=== PATIENT | male | born 1985 | race Caucasian/White ===

== ENCOUNTER 2018-02-23 14:08 | Emergency (ER) | payer OTHER, MEDICAID ==
[~2018-02-23] VITALS: Ht 188 cm; Wt 86.0 kg
[~2018-02-23 14:08] MED LIST: IBUP-1985 PO; RANI150T44 PO
[2018-02-23 17:06] VITALS: BP 143/95
== END 2018-02-23 17:08 | disposition home or self-care (01) ==
LOC: ER 14:08
DX: M25.571 Pain in right ankle and joints of right foot (principal); J45.909 Unspecified asthma, uncomplicated; Z98.890 Other specified postprocedural states; Z79.899 Other long term (current) drug therapy
CPT/HCPCS: 73590; 73610; 99284

== ENCOUNTER 2018-12-28 13:33 | Emergency (ER) | payer MEDICAID, OTHER ==
[~2018-12-28] VITALS: Ht 188 cm; Wt 95.8 kg
--- NOTE | 2018-12-28 14:10 | NUR ---
patient fell off single story roof 08/10/17. Right TIB/fib 08/10/17 dr vargas been on crutches since 2017 [place] recently suppose to be 25% weight bearing, wering boot to right leg on gabapentin 800 mg qid last took tylenol 500 mg po at 1000 today last night iced and used icey hot cream
[2018-12-28] MEDS ORDERED: HYDROcodone/acetaminophen 5mg/325mg tablet PO ONE (14:15)
[2018-12-28] MEDS ORDERED: ketorolac trometh inj. 60 MG/2 ML VIAL IM ONE (14:15)
[2018-12-28] MEDS ORDERED: CYCL-1 PO (14:17)
[2018-12-28] MEDS ORDERED: HYDR-4383 PO (14:17)
[2018-12-28 14:41] VITALS: BP 125/80
== END 2018-12-28 14:53 | disposition home or self-care (01) ==
LOC: ER 13:34
DX: M54.5 Low back pain (principal); M62.830 Muscle spasm of back; J45.909 Unspecified asthma, uncomplicated; K21.9 Gastro-esophageal reflux disease without esophagitis; F17.200 Nicotine dependence, unspecified, uncomplicated; Z98.890 Other specified postprocedural states
CPT/HCPCS: 96372; 99283; J1885

== ENCOUNTER 2020-10-15 16:57 | Emergency (ER) | payer OTHER ==
[~2020-10-15] VITALS: Ht 188 cm; Wt 95.5 kg
[~2020-10-15 16:57] MED LIST changes: +CYCL-1 PO; +HYDR-4383 PO; +RANI-648 PO; -RANI150T44 PO
[2020-10-15 17:32] VITALS: BP 118/77
[2020-10-15] MEDS ORDERED: DOXYCYCLINE 100MG CAPSULE PO STA (20:14)
[2020-10-15] MEDS ORDERED: DOXY100C43 PO (20:18)
[2020-10-28] MEDS ORDERED: CEPH-585 PO (15:51)
== END 2020-10-15 20:32 | disposition home or self-care (01) ==
LOC: ER 16:58
DX: L03.115 Cellulitis of right lower limb (principal); J45.909 Unspecified asthma, uncomplicated; K21.9 Gastro-esophageal reflux disease without esophagitis; Z79.899 Other long term (current) drug therapy; Z48.00 Encounter for change or removal of nonsurgical wound dressing
CPT/HCPCS: 99283

== ENCOUNTER 2020-10-28 13:53 | Emergency (ER) | payer OTHER, MEDICAID ==
[~2020-10-28] VITALS: Ht 188 cm; Wt 95.5 kg
[~2020-10-28 13:53] MED LIST changes: +DOXY100C43 PO
--- NOTE | 2020-10-28 14:51 | NUR ---
patient in gown wound to right lower leg present since august 10, 2017
[2020-10-28 14:57] LABS: BASOPHILS # (AUTO) 0.1 X10'3 (0-0.2); BASOPHILS % (AUTO) 0.8 % (0-1); EOSINOPHILS # (AUTO) 0.2 X10'3 (0-0.9); EOSINOPHILS % (AUTO) 2.6 % (0-6); HEMATOCRIT 44.8 % (42.0-52.0); HEMOGLOBIN 15.3 g/dl (14.0-17.9); LYMPHOCYTES # (AUTO) 2.2 X10'3 (1.1-4.8); LYMPHOCYTES % (AUTO) 23.3 % (21-51); MEAN CORPUSCULAR HEMOGLOBIN 33.8 PG (27.0-31.0); MEAN CORPUSCULAR HGB CONC 34.3 g/dL (33.0-36.5); MEAN CORPUSCULAR VOLUME 98.6 FL (78-98); MEAN PLATELET VOLUME 7.3 FL (7.4-10.4); MONOCYTES # (AUTO) 0.7 X10'3 (0-0.9); MONOCYTES % (AUTO) 7.5 % (2-12); NEUTROPHILS # (AUTO) 6.3 X10'3 (1.8-7.7); NEUTROPHILS % (AUTO) 65.8 % (42-75); PLATELET COUNT 262 X10'3 (140-440); RED BLOOD COUNT 4.54 X10'6 (4.70-6.10); RED CELL DISTRIBUTION WIDTH 12.9 % (11.5-14.5); WHITE BLOOD COUNT 9.6 X10'3 (4.5-11.0)
[2020-10-28 15:21] LABS: ALANINE AMINOTRANSFERASE 27 U/L (12-78); ALBUMIN 4.1 G/DL (3.4-5.0); ALBUMIN/GLOBULIN RATIO 1.2 (1.1-1.5); ALKALINE PHOSPHATASE 53 IU/L (46-116); ANION GAP 9 (8-16); ASPARTATE AMINO TRANSFERASE 23 U/L (10-37); BILIRUBIN,TOTAL 0.4 MG/DL (0.1-1.0); BLOOD UREA NITROGEN 9 MG/DL (7-18); BUN/CREATININE RATIO 7.9 (5.4-32.0); CALCIUM 8.8 MG/DL (8.5-10.1); CHLORIDE 103 MMOL/L (99-107); CREATININE 1.14 MG/DL (0.60-1.10); GLUCOSE 93 MG/DL (70-104); POTASSIUM 3.8 MMOL/L (3.5-5.1); SODIUM 138 MMOL/L (135-145); TOTAL CARBON DIOXIDE 26.4 MMOL/L (24-32); TOTAL PROTEIN 7.4 G/DL (6.4-8.2); eGFR 73 ML/MIN
--- NOTE | 2020-10-28 15:34 | NUR ---
per dr josi mcdaniel is safe to discharge home on antibiotics jonas recently finished a course of doxy from his visit here on 10/15/20
--- NOTE | 2020-10-28 15:39 | NUR ---
jonas takes norco and gabapentin for crs related to his tib/fib fracture jonas has not been in wound care because workers comp denied it per patient
[2020-10-28] MEDS ORDERED: SULF1TAB49 PO (15:51)
[2020-10-28] MEDS ORDERED: CEPH500C5 PO (15:51)
[2020-10-28 16:05] VITALS: BP 126/84
== END 2020-10-28 16:02 | disposition home or self-care (01) ==
LOC: ER 13:53
DX: L03.115 Cellulitis of right lower limb (principal); J45.909 Unspecified asthma, uncomplicated; K21.9 Gastro-esophageal reflux disease without esophagitis; F17.200 Nicotine dependence, unspecified, uncomplicated; Z98.890 Other specified postprocedural states; Z87.820 Personal history of traumatic brain injury; Z72.89 Other problems related to lifestyle; Z79.2 Long term (current) use of antibiotics; Z79.899 Other long term (current) drug therapy
CPT/HCPCS: 36415; 73590; 80053; 83605; 85025; 86140; 99284

== ENCOUNTER 2020-11-22 14:24 | Inpatient (IN) | payer MEDICAID, OTHER ==
[~2020-11-22] VITALS: Ht 188 cm; Wt 105.5 kg
[~2020-11-22 14:24] MED LIST changes: +CEPH500C5 PO; -DOXY100C43 PO
[2020-11-22] MEDS ORDERED: LORazepam 2 mg/ml vial IV ONE (16:30)
[2020-11-22] MEDS ORDERED: magnesium 2GM in 50ml NS 50 ML IV ONE (16:30)
[2020-11-22] MEDS ORDERED: normal saline 1000ML IV soln IV ONE (16:30)
[2020-11-22 17:30] LABS: BASOPHILS # (AUTO) 0.1 X10'3 (0-0.2); BASOPHILS % (AUTO) 0.4 % (0-1); EOSINOPHILS % (AUTO) 0 % (0-6); HEMATOCRIT 43.8 % (42.0-52.0); HEMOGLOBIN 15.1 g/dl (14.0-17.9); LYMPHOCYTES # (AUTO) 1.8 X10'3 (1.1-4.8); LYMPHOCYTES % (AUTO) 11.8 % (21-51); MEAN CORPUSCULAR HEMOGLOBIN 33.4 PG (27.0-31.0); MEAN CORPUSCULAR HGB CONC 34.6 g/dL (33.0-36.5); MEAN CORPUSCULAR VOLUME 96.7 FL (78-98); MEAN PLATELET VOLUME 6.7 FL (7.4-10.4); MONOCYTES # (AUTO) 0.8 X10'3 (0-0.9); MONOCYTES % (AUTO) 5.5 % (2-12); NEUTROPHILS # (AUTO) 12.3 X10'3 (1.8-7.7); NEUTROPHILS % (AUTO) 82.3 % (42-75); PLATELET COUNT 300 X10'3 (140-440); RED BLOOD COUNT 4.53 X10'6 (4.70-6.10)
[2020-11-22 17:40] LABS: ALANINE AMINOTRANSFERASE 28 U/L (12-78); ALBUMIN 4.3 G/DL (3.4-5.0); ALBUMIN/GLOBULIN RATIO 1.3 (1.1-1.5); ALKALINE PHOSPHATASE 66 IU/L (46-116); ANION GAP 10 (8-16); ASPARTATE AMINO TRANSFERASE 40 U/L (10-37); BILIRUBIN,TOTAL 0.6 MG/DL (0.1-1.0); BLOOD UREA NITROGEN 11 MG/DL (7-18); BUN/CREATININE RATIO 10.8 (5.4-32.0); CALCIUM 9.2 MG/DL (8.5-10.1); CHLORIDE 105 MMOL/L (99-107); CREATINE KINASE 233 U/L (39-308); CREATININE 1.02 MG/DL (0.60-1.10); ETHANOL < 0.010 GM/DL (0.0-0.010); GLUCOSE 109 MG/DL (70-104); POTASSIUM 3.9 MMOL/L (3.5-5.1); SODIUM 140 MMOL/L (135-145); TOTAL CARBON DIOXIDE 24.6 MMOL/L (24-32); TOTAL PROTEIN 7.7 G/DL (6.4-8.2); eGFR 83 ML/MIN
[2020-11-22 19:33] LABS: URINE AMPHETAMINE SCREEN NEGATIVE (Neg); URINE BARBITUATE SCREEN NEGATIVE (Neg); URINE BENZODIAZEPINES SCREEN NEGATIVE (Neg); URINE CANNABINOID SCREEN POSITIVE (Neg); URINE COCAINE SCREEN NEGATIVE (Neg); URINE METHADONE SCREEN NEGATIVE (Neg); URINE OPIATE SCREEN NEGATIVE (Neg); URINE PHENCYCLIDINE SCREEN NEGATIVE (Neg)
[2020-11-22 19:35] LABS: CLARITY,URINE CLEAR (Clear); COLOR,URINE YELLOW (Yellow); GLUCOSE, URINE NEGATIVE (Neg); KETONES,URINE >=80 mg/dl (Neg); LEUKOCYTE ESTERASE ,URINE NEGATIVE (Neg); NITRITES, URINE NEGATIVE (Neg); OCCULT BLOOD,URINE NEGATIVE (Neg); PH,URINE 5.5 (4.8-8.0); PROTEIN,URINE NEGATIVE (Neg); UROBILINOGEN,URINE 0.2 E.U/dL (0.2-1.0)
[2020-11-22 19:38] LABS: UA COLLECTION TYPE URINAL
[2020-11-22] MEDS ORDERED: LORazepam 2 mg/ml vial IV PRN (20:00)
[2020-11-22] MEDS ORDERED: potassium Cl 40MEQ/1/2NS 520ml 520 ML IV PRN ×2 (20:00)
[2020-11-22] MEDS ORDERED: magnesium 4gm in 100ml NS 100 ML IV PRN (20:00)
[2020-11-22] MEDS ORDERED: morphine 2 MG/ML inj. syringe IV PRN (20:00)
[2020-11-22] MEDS ORDERED: magnesium 2GM in 50ml NS 50 ML IV PRN (20:00)
[2020-11-22] MEDS ORDERED: mag hydrox/Alum hydrox/simeth 30ml oral suspension PO PRN (20:00)
[2020-11-22] MEDS ORDERED: ondansetron/PF 4mg/2ml inj IV PRN (20:00)
[2020-11-22] MEDS: K and/or MAG REPLACEMENT MC SCH (20:00)
[2020-11-22] MEDS ORDERED: bisacodyl 10mg suppository rectal RC PRN (20:00)
[2020-11-22] MEDS ORDERED: metoclopramide 5 mg/ml inj IV PRN (20:00)
[2020-11-22] MEDS ORDERED: HYDROcodone/acetaminophen 5mg/325mg tablet PO PRN (20:00)
[2020-11-22] MEDS ORDERED: potassium Cl 20 mEq SR tablet PO PRN ×2 (20:00)
[2020-11-22] MEDS ORDERED: acetaminophen 325mg tablet PO PRN ×2 (20:00)
[2020-11-22] MEDS ORDERED: magnesium Cl slow-release 64mg tablet PO PRN (20:00)
[2020-11-22] MEDS ORDERED: magnesium hydroxide 30ml (MOM) UD suspension PO PRN (20:00)
[2020-11-22] MEDS ORDERED: HYDR-3973 PO (20:11)
[2020-11-22] MEDS ORDERED: LURA40TA3 PO (20:13)
[2020-11-22] MEDS ORDERED: GABA800T11 PO (20:14)
[2020-11-22] MEDS: normal saline 1000ml 1,000 ML IV SCH (20:19)
[2020-11-22] MEDS: morphine 2 MG/ML inj. syringe IV PRN (20:20)
[2020-11-22 20:33] LABS: PHOSPHORUS 3.2 MG/DL (2.3-4.5)
[2020-11-22] MEDS ORDERED: temazepam 15mg capsule PO PRN (21:00)
[2020-11-22] MEDS: HYDROcodone/acetaminophen 10/325mg tab PO PRN (21:18)
[2020-11-22] MEDS ORDERED: ibuprofen 200mg tablet PO PRN (22:05)
[2020-11-22] MEDS ORDERED: nicotine 14mg patch - 24hr TD ONE (22:05)
[2020-11-22] MEDS: gabapentin 400mg capsule PO SCH (22:15)
[2020-11-22] MEDS: lurasidone 20mg tablet PO SCH (22:16)
[2020-11-23 02:50] LABS: HEMATOCRIT 39.9 % (42.0-52.0); HEMOGLOBIN 13.6 g/dl (14.0-17.9); MEAN CORPUSCULAR HEMOGLOBIN 33.3 PG (27.0-31.0); MEAN CORPUSCULAR HGB CONC 34.1 g/dL (33.0-36.5); MEAN CORPUSCULAR VOLUME 97.7 FL (78-98); MEAN PLATELET VOLUME 6.8 FL (7.4-10.4); PLATELET COUNT 227 X10'3 (140-440); RED BLOOD COUNT 4.08 X10'6 (4.70-6.10); WHITE BLOOD COUNT 10.4 X10'3 (4.5-11.0)
[2020-11-23 03:07] LABS: ALBUMIN 3.3 G/DL (3.4-5.0); ANION GAP 11 (8-16); BLOOD UREA NITROGEN 8 MG/DL (7-18); BUN/CREATININE RATIO 9.2 (5.4-32.0); CALCIUM 7.5 MG/DL (8.5-10.1); CHLORIDE 106 MMOL/L (99-107); CREATININE 0.87 MG/DL (0.60-1.10); GLUCOSE 97 MG/DL (70-104); MAGNESIUM 2.2 MG/DL (1.5-2.4); POTASSIUM 3.5 MMOL/L (3.5-5.1); SODIUM 139 MMOL/L (135-145); TOTAL CARBON DIOXIDE 22.2 MMOL/L (24-32); eGFR > 90 ML/MIN
[2020-11-23] MEDS: normal saline 1000ml 1,000 ML IV SCH ×2 (03:29→16:01)
[2020-11-23] MEDS: HYDROcodone/acetaminophen 10/325mg tab PO PRN (03:29)
[2020-11-23] MEDS: K and/or MAG REPLACEMENT MC SCH ×2 (06:29→20:00)
[2020-11-23] MEDS: gabapentin 400mg capsule PO SCH ×2 (07:31→19:30)
[2020-11-23] MEDS: nicotine 14mg patch - 24hr TD SCH (07:32)
[2020-11-23] MEDS ORDERED: HYDROcodone/acetaminophen 10/325mg tab PO SCH (08:00)
--- NOTE | 2020-11-23 10:10 | NUR ---
patient on bed asleep.We will monitor.
[2020-11-23] MEDS ORDERED: GADOTERATE MEGLUMINE 7.5 MMOL/15 ML VIAL IV ONE (10:13)
--- NOTE | 2020-11-23 11:11 | NUR ---
placed on hospital bed
--- NOTE | 2020-11-23 14:02 | NUR ---
Patient resting quietly, no needs at this time.
--- NOTE | 2020-11-23 18:55 | NUR ---
report given to PCU on tele monitor for transport
[2020-11-23] MEDS: lurasidone 20mg tablet PO SCH (19:30)
[2020-11-23] MEDS: morphine 2 MG/ML inj. syringe IV PRN (19:30)
[2020-11-24 02:00] VITALS: BP 145/75
[2020-11-24] MEDS: normal saline 1000ml 1,000 ML IV SCH ×3 (02:00→21:28)
[2020-11-24 06:00] VITALS: BP 140/90
--- NOTE | 2020-11-24 06:44 | NUR ---
Patient in room PCU 3025. I have received report from Simon Goddard RN and had the opportunity to ask questions and assume patient care.
--- NOTE | 2020-11-24 06:52 | NUR ---
Paged EEG to make sure they are aware of EEG order from 11/22.
[2020-11-24 07:04] LABS: HEMATOCRIT 42.3 % (42.0-52.0); HEMOGLOBIN 14.4 g/dl (14.0-17.9); MEAN CORPUSCULAR HEMOGLOBIN 33.1 PG (27.0-31.0); MEAN CORPUSCULAR VOLUME 97.3 FL (78-98); MEAN PLATELET VOLUME 6.9 FL (7.4-10.4); PLATELET COUNT 236 X10'3 (140-440); RED BLOOD COUNT 4.35 X10'6 (4.70-6.10); RED CELL DISTRIBUTION WIDTH 13.4 % (11.5-14.5)
[2020-11-24 07:22] LABS: ALBUMIN 3.5 G/DL (3.4-5.0); ANION GAP 11 (8-16); BLOOD UREA NITROGEN 8 MG/DL (7-18); BUN/CREATININE RATIO 9.4 (5.4-32.0); CALCIUM 8.5 MG/DL (8.5-10.1); CHLORIDE 103 MMOL/L (99-107); CREATININE 0.85 MG/DL (0.60-1.10); GLUCOSE 96 MG/DL (70-104); MAGNESIUM 2.1 MG/DL (1.5-2.4); PHOSPHORUS 3.4 MG/DL (2.3-4.5); POTASSIUM 3.5 MMOL/L (3.5-5.1); SODIUM 139 MMOL/L (135-145); TOTAL CARBON DIOXIDE 24.8 MMOL/L (24-32); eGFR > 90 ML/MIN
[2020-11-24] MEDS: gabapentin 400mg capsule PO SCH ×2 (07:55→20:00)
[2020-11-24] MEDS: nicotine 14mg patch - 24hr TD SCH (07:56)
[2020-11-24] MEDS: K and/or MAG REPLACEMENT MC SCH ×2 (08:00→19:28)
[2020-11-24 11:00] VITALS: BP 140/89
[2020-11-24 15:00] VITALS: BP 127/88
--- NOTE | 2020-11-24 15:36 | NUR ---
Paged EEG regarding results of EEG from this morning.
--- NOTE | 2020-11-24 15:46 | NUR ---
Spoke with Dr Logan regarding patient' s EEG results. Received order to do a tele neuro consult regarding EEG results. Addendum: 11/24/20 at 1550 by Anna Best RN Success A new connect request was successfully created for: Jose Torres : 1985 ConnectID: [id number] REASON: Follow up Other ACUITY: Acuity Level 4 SUBMITTED: 11/24/2020 15:50 PST
[2020-11-24 18:00] VITALS: BP 141/89
--- NOTE | 2020-11-24 18:14 | NUR ---
Problems reprioritized. Patient report given, questions answered & plan of care reviewed with JACQUELINE TAYLOR.
[2020-11-24] MEDS: divalproex 250mg tablet, delayed-release PO SCH (20:00)
[2020-11-24] MEDS: lurasidone 20mg tablet PO SCH (21:28)
[2020-11-24 22:00] VITALS: BP 145/94
[2020-11-25 02:00] VITALS: BP 145/84
[2020-11-25 06:00] VITALS: BP 136/78
--- NOTE | 2020-11-25 06:15 | NUR ---
received report from viviana colon
[2020-11-25 06:21] LABS: HEMATOCRIT 42.4 % (42.0-52.0); HEMOGLOBIN 14.9 g/dl (14.0-17.9); MEAN CORPUSCULAR HEMOGLOBIN 33.7 PG (27.0-31.0); MEAN CORPUSCULAR HGB CONC 35.1 g/dL (33.0-36.5); MEAN CORPUSCULAR VOLUME 95.9 FL (78-98); MEAN PLATELET VOLUME 6.8 FL (7.4-10.4); PLATELET COUNT 244 X10'3 (140-440); RED BLOOD COUNT 4.42 X10'6 (4.70-6.10); WHITE BLOOD COUNT 8.9 X10'3 (4.5-11.0)
[2020-11-25 06:50] LABS: ALBUMIN 3.7 G/DL (3.4-5.0); ANION GAP 12 (8-16); BLOOD UREA NITROGEN 11 MG/DL (7-18); BUN/CREATININE RATIO 10.6 (5.4-32.0); CALCIUM 8.8 MG/DL (8.5-10.1); CHLORIDE 103 MMOL/L (99-107); CREATININE 1.04 MG/DL (0.60-1.10); GLUCOSE 96 MG/DL (70-104); MAGNESIUM 2.2 MG/DL (1.5-2.4); POTASSIUM 3.6 MMOL/L (3.5-5.1); SODIUM 143 MMOL/L (135-145); TOTAL CARBON DIOXIDE 28.5 MMOL/L (24-32); eGFR 81 ML/MIN
[2020-11-25] MEDS: nicotine 14mg patch - 24hr TD SCH (07:49)
[2020-11-25] MEDS: gabapentin 400mg capsule PO SCH (07:50)
[2020-11-25] MEDS: divalproex 250mg tablet, delayed-release PO SCH (07:50)
[2020-11-25] MEDS: K and/or MAG REPLACEMENT MC SCH (07:53)
[2020-11-25] MEDS: normal saline 1000ml 1,000 ML IV SCH (08:00)
[2020-11-25] MEDS ORDERED: DIVA250T4 PO (10:23)
--- NOTE | 2020-11-25 11:13 | NUR ---
pt d/c with instructions, understanding of instructions and w/all belongings walking private vehicle to go home and make own appointment w/pcp pt had a right lower extremity wound that [facility] outpt wound care manages and pt did not want to have a picture taken of his wound prior to d/c
== END 2020-11-25 11:15 | disposition home or self-care (01) | DRG 812 ==
LOC: ER 14:24 → ED HOLD 20:00 → PCU 3S 11-23 19:00
PROVIDERS: ADMIT Family Medicine; ATTEND Internal Medicine
PROC: 4A00X4Z Measurement of Central Nervous Electrical Activity, External Approach (ICD-10-PCS; principal; 2020-11-24)
DX: T40.7X1A Poisoning by cannabis (derivatives), accidental (unintentional), initial encounter (principal); G40.89 Other seizures; D72.829 Elevated white blood cell count, unspecified; F31.30 Bipolar disorder, current episode depressed, mild or moderate severity, unspecified; G89.4 Chronic pain syndrome; G93.41 Metabolic encephalopathy; J45.909 Unspecified asthma, uncomplicated; F17.210 Nicotine dependence, cigarettes, uncomplicated; K21.9 Gastro-esophageal reflux disease without esophagitis; Z87.828 Personal history of other (healed) physical injury and trauma; Z79.899 Other long term (current) drug therapy; Y92.89 Other specified places as the place of occurrence of the external cause
CPT/HCPCS: 36415; 70450; 70544; 70553; 71045; 80048; 80053; 80305; 80320; 81003; 82550; 83605; 83735; 84100; 84145; 84443; 85025; 85027; 87040; 87081; 93005; 95816; 99285; A9575; G0378; J2060; J2270; J3475; J7030

== ENCOUNTER 2022-03-26 16:11 | Emergency (ER) | payer BC, MEDICAID ==
[~2022-03-26] VITALS: Ht 188 cm; Wt 97.7 kg
[~2022-03-26 16:11] MED LIST changes: -CEPH500C5 PO; -CYCL-1 PO; +DIVA250T4 PO; +GABA800T11 PO; +HYDR-3973 PO; -HYDR-4383 PO; +LURA40TA2 PO; -RANI-648 PO
[2022-03-26 17:15] LABS: BASOPHILS % (AUTO) 0.3 % (0-1); EOSINOPHILS % (AUTO) 0.8 % (0-6); HEMATOCRIT 40.8 % (42.0-52.0); HEMOGLOBIN 14.1 g/dl (14.0-17.9); LYMPHOCYTES # (AUTO) 0.4 X10'3 (1.1-4.8); LYMPHOCYTES % (AUTO) 7.6 % (21-51); MEAN CORPUSCULAR HGB CONC 34.6 g/dL (33.0-36.5); MEAN CORPUSCULAR VOLUME 98.2 FL (78-98); MEAN PLATELET VOLUME 7.2 FL (7.4-10.4); MONOCYTES # (AUTO) 0.9 X10'3 (0-0.9); MONOCYTES % (AUTO) 19.3 % (2-12); NEUTROPHILS # (AUTO) 3.4 X10'3 (1.8-7.7); PLATELET COUNT 169 X10'3 (140-440); RED BLOOD COUNT 4.16 X10'6 (4.70-6.10); RED CELL DISTRIBUTION WIDTH 13.7 % (11.5-14.5); WHITE BLOOD COUNT 4.8 X10'3 (4.5-11.0)
[2022-03-26 17:33] LABS: ALANINE AMINOTRANSFERASE 30 U/L (12-78); ALBUMIN 4.2 G/DL (3.4-5.0); ALBUMIN/GLOBULIN RATIO 1.4 (1.1-1.5); ALKALINE PHOSPHATASE 50 IU/L (46-116); ANION GAP 9 (8-16); ASPARTATE AMINO TRANSFERASE 21 U/L (10-37); BILIRUBIN,TOTAL 0.4 MG/DL (0.1-1.0); BLOOD UREA NITROGEN 13 MG/DL (7-18); BUN/CREATININE RATIO 10.5 (5.4-32.0); CALCIUM 8.3 MG/DL (8.5-10.1); CHLORIDE 98 MMOL/L (99-107); CREATININE 1.24 MG/DL (0.60-1.10); GLUCOSE 93 MG/DL (70-104); POTASSIUM 3.7 MMOL/L (3.5-5.1); SODIUM 135 MMOL/L (135-145); TOTAL PROTEIN 7.3 G/DL (6.4-8.2); eGFR 66 ML/MIN
[2022-03-27] MEDS ORDERED: VANCOMYCIN IV STA (01:41)
[2022-03-27] MEDS ORDERED: WATER IV STA (01:41)
[2022-03-27] MEDS ORDERED: DEXTROSE 5% IV STA (01:41)
[2022-03-27] MEDS ORDERED: acetaminophen 325mg tablet PO ONE (01:45)
[2022-03-27] MEDS ORDERED: vancomycin inj 2,000 MG in normal saline 500ml IV soln 500 ML IV STA (02:06)
[2022-03-27] MEDS ORDERED: iohexol 300mg/ml 100ml inj. ONE (02:29)
[2022-03-27 04:51] VITALS: BP 119/78
== END 2022-03-27 09:00 | disposition home or self-care (01) ==
LOC: ER 16:12
DX: U07.1 COVID-19 (principal); J45.909 Unspecified asthma, uncomplicated; K21.9 Gastro-esophageal reflux disease without esophagitis; Z98.890 Other specified postprocedural states
CPT/HCPCS: 36415; 70450; 71045; 72125; 72129; 72132; 80053; 83605; 84145; 85025; 85651; 86140; 87040; 87502; 87503; 87635; 96365; 96366; 99285; C9803; J3370; J3490; J7040; Q9967

== ENCOUNTER 2022-05-01 11:51 | Emergency (ER) | payer BC, MEDICAID, OTHER ==
[~2022-05-01] VITALS: Ht 188 cm; Wt 97.7 kg
[2022-05-01 12:03] VITALS: BP 140/107
[2022-05-01] MEDS ORDERED: LEVO500T90 PO (16:39)
[2022-05-01] MEDS ORDERED: levoFLOXACIN 750MG TABLET PO ONE (16:40)
== END 2022-05-01 17:03 | disposition home or self-care (01) ==
LOC: ER 11:52
DX: S80.921D Unspecified superficial injury of right lower leg, subsequent encounter (principal); K21.9 Gastro-esophageal reflux disease without esophagitis; J45.909 Unspecified asthma, uncomplicated; Z88.8 Allergy status to other drugs, medicaments and biological substances; Z79.2 Long term (current) use of antibiotics; X58.XXXD Exposure to other specified factors, subsequent encounter
CPT/HCPCS: 36415; 73721; 85651; 86140; 87070; 87077; 87186; 99284; A6258; A6446; A6449

== ENCOUNTER 2022-12-25 15:25 | Emergency (ER) | payer BC, MEDICAID ==
[~2022-12-25] VITALS: Ht 188 cm; Wt 97.7 kg
--- NOTE | 2022-12-25 16:05 | NUR ---
NOTIFED CHARGE NURSE RN WANDA THAT PATIENT NEEDS TO BE TRIAGED.
[2022-12-25 17:17] VITALS: BP 140/92
--- NOTE | 2022-12-25 17:19 | NUR ---
PT REMOVED C-COLLAR.
[2022-12-25] MEDS ORDERED: orphenadrine citrate 60mg/2ml inj. IM ONE (17:35)
[2022-12-25] MEDS ORDERED: HYDROcodone/acetaminophen 10/325mg tab PO ONE (17:35)
[2022-12-25] MEDS ORDERED: ORPH100T2 PO (17:39)
--- NOTE | 2022-12-25 18:10 | NUR ---
CALLED [facility] FOR TRANSPORTATION OF PT TO [place] [id number] IN [place]. EST TIME 20-25 MIN.
--- NOTE | 2022-12-25 18:41 | NUR ---
PT PUT IN CAB
== END 2022-12-25 18:46 | disposition home or self-care (01) ==
LOC: ER 15:27
DX: S13.4XXA Sprain of ligaments of cervical spine, initial encounter (principal); M25.571 Pain in right ankle and joints of right foot; J45.909 Unspecified asthma, uncomplicated; K21.9 Gastro-esophageal reflux disease without esophagitis; Z91.09 Other allergy status, other than to drugs and biological substances; V89.2XXA Person injured in unspecified motor-vehicle accident, traffic, initial encounter; Y93.89 Activity, other specified; Y92.89 Other specified places as the place of occurrence of the external cause; Y99.8 Other external cause status
CPT/HCPCS: 71045; 72040; 73610; 96372; 99284; J2360; A6449

== ENCOUNTER 2023-03-03 13:09 | Emergency (ER) | payer BC, MEDICAID ==
[~2023-03-03] VITALS: Ht 188 cm; Wt 97.0 kg
[~2023-03-03 13:09] MED LIST changes: +ORPH100T4 PO
[2023-03-03 13:42] LABS: BASOPHILS # (AUTO) 0.1 X10'3 (0-0.2); BASOPHILS % (AUTO) 0.5 % (0-1); EOSINOPHILS % (AUTO) 0.1 % (0-6); HEMATOCRIT 43.6 % (42.0-52.0); LYMPHOCYTES # (AUTO) 1.1 X10'3 (1.1-4.8); LYMPHOCYTES % (AUTO) 7.7 % (21-51); MEAN CORPUSCULAR HGB CONC 34.5 g/dL (33.0-36.5); MEAN CORPUSCULAR VOLUME 98.6 FL (78-98); MONOCYTES # (AUTO) 0.9 X10'3 (0-0.9); MONOCYTES % (AUTO) 6.5 % (2-12); NEUTROPHILS # (AUTO) 12.1 X10'3 (1.8-7.7); NEUTROPHILS % (AUTO) 85.2 % (42-75); PLATELET COUNT 253 X10'3 (140-440); RED BLOOD COUNT 4.42 X10'6 (4.70-6.10); RED CELL DISTRIBUTION WIDTH 14.5 % (11.5-14.5); WHITE BLOOD COUNT 14.3 X10'3 (4.5-11.0)
[2023-03-03 13:54] LABS: ALANINE AMINOTRANSFERASE 43 U/L (12-78); ALBUMIN 3.5 G/DL (3.4-5.0); ALKALINE PHOSPHATASE 91 IU/L (46-116); ANION GAP 10 (8-16); ASPARTATE AMINO TRANSFERASE 36 U/L (10-37); BILIRUBIN,TOTAL 0.7 MG/DL (0.1-1.0); BLOOD UREA NITROGEN 8 MG/DL (7-18); BUN/CREATININE RATIO 7.6 (10.0-20.0); CHLORIDE 103 MMOL/L (99-107); CREATININE 1.05 MG/DL (0.60-1.10); GLUCOSE 144 MG/DL (70-104); POTASSIUM 3.5 MMOL/L (3.5-5.1); SODIUM 136 MMOL/L (135-145); TOTAL CARBON DIOXIDE 23.2 MMOL/L (24-32); TOTAL PROTEIN 6.9 G/DL (6.4-8.2); eGFR 79 ML/MIN
[2023-03-03] MEDS ORDERED: normal saline 1000ml 1,000 ML IV ONE (14:25)
[2023-03-03] MEDS ORDERED: levetiracetam inj 1,000 MG in normal saline 100ml IV soln 100 ML IV ONE (14:45)
[2023-03-03] MEDS ORDERED: ketorolac trometh inj. 60 MG/2 ML VIAL IM ONE (15:10)
[2023-03-03 16:47] VITALS: BP 162/87
== END 2023-03-03 16:48 | disposition home or self-care (01) ==
LOC: ER 13:10
DX: G40.909 Epilepsy, unspecified, not intractable, without status epilepticus (principal)
CPT/HCPCS: 36415; 80053; 85025; 93005; 96365; 96375; 99284; J1885; J1953; J3490; J7030

== ENCOUNTER 2025-06-25 14:50 | Emergency (ER) | payer MEDICAID, MEDICARE ==
[~2025-06-25] VITALS: Ht 188 cm; Wt 80.0 kg
[~2025-06-25 14:50] MED LIST changes: +DIVA-159 PO; -DIVA250T4 PO; +GABA-1555 PO; -GABA800T11 PO; -IBUP-1985 PO; +IBUP600T52 PO
[2025-06-25 14:52] VITALS: TEMP 97.8
[2025-06-25] MEDS ORDERED: GABA-1555 PO (15:48)
[2025-06-25] MEDS ORDERED: BACI28.42 TOP (15:48)
--- NOTE | 2025-06-25 15:48 | Physician Documentation ---
History of Present Illness ~ Chief Complaint: Seizure Stated Complaint: SEIZURES Time Seen by MD: 15:31 Primary Medical Doctor: NO PMD Source: patient Mode of Arrival: POV Exam Limitations: no limitations HPI 40-year-old male with history of traumatic brain injury and seizures he states are greatly provoked by stress feels like he potentially had a seizure today and called an ambulance as he was smoking a cigarette on the step of his trailer and then suddenly woke up a couple of hours later in bed. Patient has no recollection of seizure activity or head injury but states that he was in his Sundays in bed like if he was going to sleep. Patient has had history of seizures for approximately 8 years he is on no medications was on gabapentin at 1 point. Patient fell off a roof and does have a nonhealing wound from surgical hardware to the right ankle he just recently moved back into town and is in between primary care providers to get wound care to continue treatment. Medication Reconciliation Allergies: Uncoded Allergies: SURGICAL STEEL (Allergy, Severe, NON HEALING WOUND, 04/21/22) Scheduled Divalproex Sodium (Depakote), 500 MG PO BID Gabapentin (Gabapentin), 1 TAB PO Q12H, (Reported) Hydrocodone Bit/Acetaminophen (Hydrocodone-Apap 10-325 Tablet), 1 TABLET PO QID, (Reported) Lurasidone HCl (Latuda), 1 TAB PO HS, (Reported) Scheduled PRN Ibuprofen (Ibuprofen), 1 TAB PO BID PRN for pain, (Reported) Orphenadrine Citrate (Norflex), 1 TAB PO Q12H PRN PRN for muscle spasms Past Medical History Past Medical History: Seizures, Asthma, GERD, *MUSCULOSKELETAL*, Extremity Fracture Past Surgical History: noncontributory, orthopedic surgeries, other Other Past Surgical History: Vericocele Surgery Alcohol Use: Occasionally Drug Use: none Lives In: Home Occupation: employed Review of Systems All Other Systems at this time: Reviewed and Negative Neurological: Reports: see HPI Integumentary: Reports: see HPI Physical Exam Vital Signs: RN Vital Signs have been reviewed: Yes, Temperature: 97.8, Source: Oral, Heart Rate: 92, Respiratory Rate: 16, BP: 135/86, Pulse Oximetry: 98, Weight: 80.000 General Appearance: alert, WD/WN, no apparent distress Head: no evidence of injury; No: tenderness Face: normal; No: tender Pupils/EOM/Fundus: PERRLA, EOM intact Neck: non-tender, full range of motion Respiratory: lungs clear, normal breath sounds, no respiratory distress Chest: no accessory muscle use, chest non-tender Cardiovascular: normal peripheral pulses, regular rate, rhythm, no edema Neurologic: oriented x4 Motor / Sensory: no motor deficit, no sensory deficit, no pronator drift Coordination / Gait: normal finger to nose Affect: appropriate Thoughts/Hallucinations: normal thought pattern, no apparent hallucination Progress Results/Orders Results/Orders Vital Signs 06/25/25 14:52 Temp 97.8 Pulse 92 Resp 16 B/P (MAP) 135/86 Pulse Ox 98 Medical Decision Making Findings Patient has a chronic wound from surgical hardware from 2017 on his right ankle does not appear infected we will give some wound care supplies while he is in between providers getting insurance for himself as well as gabapentin as he has tried gabapentin in the past for seizures and neuropathic pain. Patient has no signs of head injury or trauma from any type of subjective seizure activity as he was smoking a cigarette and then was awakened in bed like taking it. Patient is to follow up with primary care with referrals to Neurology as needed Departure Time of Disposition: 15:47 Disposition: 01 HOME / SELF CARE / HOMELESS Impression: Primary Impression: Seizure disorder Additional Impression: Non-healing wound Condition: Stable Discharge Instructions: Seizure, Adult Additional Instructions: Take medication as prescribed and follow up with primary care as well as using wound care supplies for nonhealing wound. Tried to reduce stress to help reduce seizure activity Referrals: NO PRIMARY CARE PROVIDER (PCP) Prescriptions Bacitracin (Bacitracin) 500 Unit/Gram Oint...g. 1 APPLIC TOP Q12H for 7 Days, #15 GM 0 Refills apply to affected area(s) Prov: MACIE GARCIA NP 06/25/25 Gabapentin (Gabapentin) 800 Mg Tablet 1 TAB PO Q12H for 30 Days, #90 TAB Prov: MACIE GARCIA GROUP HOME WORKER 06/25/25 Education Educated: Patient Educated regarding: diagnosis, treatment, need for follow up Signature Scribe Signature: No scribe Attestation: The note accurately reflects work and decisions made by me.Macie Garcia - LOOM REPAIRER 06/25/25 15:49 MACIE GARCIA GROUP HOME WORKER Jun 25, 2025 15:48
[2025-06-25 16:06] VITALS: BP 126/78; PULSE 82; O2SAT 98
[2025-06-25 16:10] VITALS: RESP 15
== END 2025-06-25 16:15 | disposition home or self-care (01) ==
LOC: ER 14:51
DX: G40.909 Epilepsy, unspecified, not intractable, without status epilepticus (principal); T81.89XA Other complications of procedures, not elsewhere classified, initial encounter; J45.909 Unspecified asthma, uncomplicated; K21.9 Gastro-esophageal reflux disease without esophagitis; Z79.899 Other long term (current) drug therapy; Z72.89 Other problems related to lifestyle; W13.2XXA Fall from, out of or through roof, initial encounter; Y93.89 Activity, other specified; Y92.89 Other specified places as the place of occurrence of the external cause; Y99.8 Other external cause status
CPT/HCPCS: 99284; A6223; A6258; A6449